=== PATIENT | female | born 1965 | race Caucasian/White ===

== ENCOUNTER 2021-12-15 10:45 | Emergency (ER) | payer BC, SELFPAY ==
[2021-12-15 11:01] VITALS: BP 145/83; PULSE 77; RESP 16; TEMP 36.4; O2SAT 94; BMI 32.3
--- NOTE | 2021-12-15 11:14 | XR_ITS ---
WS: [id number] Exam: XR knee LT 3V* [id number] Date/Time of Exam: 12/15/2021 11:20 AM Reason For Exam: Knee pain No fracture or dislocation. The joint compartments are well preserved. No joint effusion. XR/XR knee LT 3V* [id number] IMPRESSION: 1. Negative left knee.
--- NOTE | 2021-12-15 12:07 | ED_ITS ---
HPI - Extremity Injury (Lower) General: Chief Complaint: Extremity Injury, Lower Stated Complaint: fall, left knee pain Time Seen by Provider: 12/15/21 11:32 Source: patient Mode of arrival: ambulatory Limitations: no limitations History of Present Illness: Patient is a nice 56-year-old female presents to ED today with complaint of a left knee and left shoulder injury. Patient tells me yesterday she was carrying one of her grandchildren when she accidentally tripped and fell. She states she believes she twisted the left knee and then landed directly onto it and somehow fell onto her outstretched left arm. She states she heard a pop to her left shoulder. Patient has had significant pain and swelling to the left knee. She is able to bear a small amount of weight to it. She states she has previous injuries to that knee that healed with conservative treatments. She denies striking her head or LOC. She has no other complaints at this time apart from the knee and shoulder pain. MD complaint: knee injury Onset (ago): day(s) (yesterday) Injury: Left: knee Place: home Severity: severe Relieving factors: immobilization Exacerbating factors: weight bearing, movement and palpation Context: fall and direct blow Associated symptoms: Reports no associated symptoms Other symptoms: none Review of Systems Const: Denies: fever(s), chills, body aches, fatigue or malaise Card: Denies: chest pain Resp: Denies: dyspnea Musc: Reports: joint pain (L knee, L shoulder), joint swelling (L knee) and limited range of motion; Denies: neck pain, back pain, joint redness or joint warmth Neuro: Denies: numbness in extremities, weakness in extremities or sensory changes Physical Exam Const: COMMON NORMALS: no acute distress, no limitations, alert and well nourished GENERAL APPEARANCE: cooperative Resp: COMMON NORMALS: normal respiratory effort and clear to auscultation bilaterally AUSCULTATION: clear to auscultation bilaterally Cardio: COMMON NORMALS: regular rate and regular rhythm RATE: regular rate RHYTHM: regular rhythm Extremity: COMMON NORMALS: capillary refill normal GENERAL: Yes normal exam except as noted LEFT UPPER EXTREMITY: Yes shoulder joint (TTP anterior shoulder joint) Left shoulder joint: Yes neurovascular exam (normal) LEFT LOWER EXTREMITY: Yes knee joint (significant swelling throughout L knee joint) Left knee: Yes ROM (limited secondary to pain/swelling) and Yes neurovascular exam (normal) Neuro: TERI COMA SCALE: document GCS findings Teri coma scale eye opening: Spontaneous Teri coma scale verbal response: Orientated Teri coma scale motor response: Obey commands Teri coma scale total score: 15 COMMON NORMALS: moves all extremities, no focal motor deficits and no sensory deficits noted SENSORIUM/ORIENTATION: Yes alert Skin: COMMON NORMALS: no rashes or lesions noted GENERAL SKIN EXAM: no rashes or lesions noted TRAUMA: no lacerations or abrasions Course Vital Signs: Vital signs: Vital Signs Temperature 97.6 F 12/15/21 11:01 Pulse Rate 77 12/15/21 11:01 Respiratory Rate 16 12/15/21 11:01 Blood Pressure 145/83 12/15/21 11:01 Pulse Oximetry 94 12/15/21 11:01 Oxygen Delivery Me thod 12/15/21 11:01 MDM - Extremity Injury (Lower) Medical Decision Making XRs negative for acute fractures or dislocations. She does have significant swelling about her left knee concerning for internal derangement. Patient does not want to be placed in a knee immobilizer. Will [facility] wrap and recommend she purchase a tight fitting knee sleeve/brace for stabilization. She will be traveling back home to [place] in 10 days. Recommend she follow-up with PCP when she arrives home. RICE treatment discussed in the meantime. Lab Data Radiology Impressions Knee X-Ray 12/15/21 11:14 IMPRESSION: 1. Negative left knee. Shoulder X-Ray 12/15/21 12:23 IMPRESSION: 1. No fracture or dislocation. Subacromial bone spurring noted. Discharge Plan Discharge Patient Disposition: Home Clinical Impression: Acute internal derangement of left knee Injury of left shoulder Qualifiers: Encounter type: initial encounter Qualified Code(s): S49.92XA - Unspecified injury of left shoulder and upper arm, initial encounter Condition: Stable Prescriptions: New prednisone 10 mg tablet 60 mg PO DAILY 5 Days Qty: 30 0RF ibuprofen 800 mg tablet 800 mg PO Q8H PRN (Reason: pain) Qty: 20 0RF hydrocodone-acetaminophen 5-325 mg tablet 1 tab PO Q6H PRN (Reason: pain) Qty: 14 0RF Discharge Orders: Discharge ED (Routine); Ordered 12/15/21 Ordered By: Kayli Abdul Coding Level of Care Code ED [employer] Estimator for José Miguel Miller
--- NOTE | 2021-12-15 12:23 | XR_ITS ---
WS: [id number] Exam: XR shoulder LT min 2V* [id number] Date/Time of Exam: 12/15/2021 12:23 PM Reason For Exam: injury/pain No fracture or dislocation noted. Subacromial bone spurring noted. Normal soft tissues. XR/XR shoulder LT min 2V* [id number] IMPRESSION: 1. No fracture or dislocation. Subacromial bone spurring noted.
[2021-12-15] MEDS: morphine 4 mg/mL SDV 1 mL IM (13:03)
== END 2021-12-15 13:09 | disposition home or self-care (01) ==
PROVIDERS: Emergency Provider Physician Assistant
DX: M23.92 Unspecified internal derangement of left knee (principal); S49.92XA Unspecified injury of left shoulder and upper arm, initial encounter; W01.0XXA Fall on same level from slipping, tripping and stumbling without subsequent striking against object, initial encounter
CPT/HCPCS: 73030; 73562; 96372; 99284; J2270